=== PATIENT | female | born 1940 | race Caucasian/White ===

== ENCOUNTER 2024-09-13 11:11 | Emergency (ER) | payer MEDICARE, SELFPAY ==
[2024-09-13 11:23] VITALS: BP 144/71; PULSE 91; RESP 18; TEMP 36.9; O2SAT 100
--- NOTE | 2024-09-13 11:48 | ED_ITS ---
HPI - Wound/Laceration General Chief Complaint: Skin/Abscess/Foreign Body Stated Complaint: Cellulitis Source: patient Mode of arrival: ambulatory Limitations: no limitations History of Present Illness HPI narrative: Patient is a 84 year old female who presents to the clinic for concern of cellulitis to her left leg. She states that she woke up with increased redness to her left leg. She has a chronic history of lymphedema to her left leg. Denies any increased swelling, warmth, or fevers. Related Data Home Medications ?Medication ?Instructions ?Recorded ?Confirmed ?Last Taken ?Type simvastatin 20 mg tablet 20 mg PO QPM 09/13/24 09/13/24 Unknown History torsemide 10 mg tablet 10 mg PO DAILY 09/13/24 09/13/24 Unknown History Allergies Allergy/AdvReac Type Severity Reaction Status Date / Time Sulfa (Sulfonamide Allergy rash Verified 09/13/24 11:21 Antibiotics) Review of Systems Review of Systems: CONSTITUTIONAL: Denies body aches, fever, chills, or sweats. EYES: Denies visual changes, redness, or discharge. ENT: Denies rhinorrhea, congestion CARDIOVASCULAR: Denies chest pain, palpitations, or edema. RESPIRATORY: Denies cough or dyspnea. GASTROINTESTINAL: Denies abdominal pain, nausea, vomiting, or diarrhea. SKIN: ?Reports concern for cellulitis to left leg. MUSCULOSKELETAL: Denies back pain, joint pain, or myalgia. NEUROLOGIC: Denies headache, numbness, tingling, or weakness. All systems reviewed & are unremarkable except as noted in HPI and below PMFSH Comments At time of signature, I have reviewed and agree with nursing past medical, surgical, social and family history unless otherwise noted. Please see nursing chart for further information. There is no relevant family history pertinent to the presenting complaint. Exam Narrative: GENERAL: Well-appearing HEAD: Normocephalic, atraumatic. EYES: ?conjunctivae clear, and EOMI. ENT: Mucous membranes moist. Oropharynx without edema, erythema or lesions. NECK: Supple. No lymphadenopathy CHEST: Clear to auscultation. HEART: Regular rate and rhythm. SKIN: Warm, dry. Chronic Lymphedema noted. No redness or warmth noted. Pedal pulse 2+. NEURO: ?Alert and oriented x3.? Course Course Level of Care: Express Care Visit Vital Signs Vital signs: Vital Signs Temperature 98.4 F 09/13/24 11:23 Pulse Rate 91 09/13/24 11:23 Respiratory Rate 18 09/13/24 11:23 Blood Pressure 144/71 H 09/13/24 11:23 Pulse Oximetry 100 09/13/24 11:23 Oxygen Delivery Room Air 09/13/24 11:23 Temperature 98.4 F 09/13/24 11:23 Pulse Rate 91 09/13/24 11:23 Respiratory Rate 18 09/13/24 11:23 Blood Pressure 144/71 H 09/13/24 11:23 Pulse Oximetry 100 09/13/24 11:23 Oxygen Delivery Room Air 09/13/24 11:23 Reviewed MDM - Wound/Laceration MDM Narrative Medical decision making narrative: Discussed physical exam findings. Patient states that redness improved since this morning. She is out of town and concerned for cellulitis. Keflex sent in as courtesy since she is out of town. Explained in depth for her to not take it unless she develops worsening symptoms such as redness, warmth, or fevers. Advised supportive measures and signs/symptoms to go to the ER. Pt is appropriate for outpatient treatment and follow up. Differential Diagnosis Differential diagnosis: Likely other (cellulitis, contact dermatitis, lymphedema) Critical Care Time Critical Care Time Critical Care Time: No Discharge Plan Discharge Clinical Impression: Lymphedema Patient Disposition: Home Condition: Stable Instructions: Antibiotic Form, Cellulitis (ED) Additional Instructions: Clean with soap and water only; Avoid using alcohol and peroxide. Elevate the affected area if possible Alternate Tylenol/ibuprofen for as needed for pain. Apply moist heat 3-4 times daily for 10-15 minutes. Take antibiotic if you develop redness, fever, warmth or increased swelling. Please schedule a follow up visit with your personal physician for further evaluation and treatment within 3-5days OR if your symptoms persist, change or worsen significantly before you can contact your personal physician then please, without delay, go to the emergency department for further evaluation Patient Language: Persian Prescriptions: New cephalexin 500 mg capsule 500 mg PO Q12H 5 Days Qty: 10 0RF No Action simvastatin 20 mg tablet 20 mg PO QPM torsemide 10 mg tablet 10 mg PO DAILY Follow-up/Referrals: PHYSICIAN,ROPE LAYING MACHINE OPERATOR [Primary Care Provider] - Time of Disposition: 12:02
== END 2024-09-13 12:07 | disposition home or self-care (01) ==
DX: I89.0 Lymphedema, not elsewhere classified (principal)
CPT/HCPCS: 99203; G0463